=== PATIENT | male | born 1990 | race Caucasian/White ===

== ENCOUNTER 2017-05-03 14:50 | Emergency (ER) | payer MEDICAID ==
[~2017-05-03] VITALS: Ht 177.8 cm; Wt 85.0 kg
[2017-05-03 14:53] VITALS: Ht 177.8 cm; Wt 85.0 kg
[2017-05-03] MEDS ORDERED: LIDOCAINE 2% (MDV) 20 ML INJ INJ STA (15:11)
--- NOTE | 2017-05-03 15:16 | ERD ---
ER Documentation Chief Complaint Date/Time DATE: 05/03/17 TIME: 15:13 Chief Complaint left big toe ingrown toe nail HPI 26-year-old male comes emergency department with left big toe ingrown toenail for the past several months. 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 Pain is at the base of the nailbed on the left great toe, achy, worse with weightbearing, moderate to severe. He states that the pain did improve after soaking in warm water loss and after work. Also reports he has a hammertoe on the left second toe. He denies trauma or fevers or chills. Patient denies history of diabetes. ROS All systems reviewed and are negative except as per history of present illness. Medications Home Meds Active Scripts Tramadol HCl (Tramadol HCl) 50 Mg Tablet, 50 MG PO Q4 Y for PAIN, #15 TAB Prov:YARY COOPER PA-C 05/03/17 Bacitracin* (Bacitracin Zinc Oint*) 28.35 Gm Oint, 1 APPLIC TOP BID, #1 TUB APPLI TO Prov:YARY COOPER PA-C 05/03/17 Cephalexin* (Keflex*) 500 Mg Capsule, 500 MG PO QID for 7 Days, CAP Prov:YARY COOPER PA-C 05/03/17 PMhx/Soc Medical and Surgical Hx: pt denies Medical Hx, pt denies Surgical Hx Physical Exam Vitals Vital Signs Date Time Temp Pulse Resp B/P Pulse Ox O2 Delivery O2 Flow Rate FiO2 05/03/17 14:53 98.1 65 18 141/65 99 Physical Exam General: Well-developed, well-nourished. The patient appears in no acute distress. HEENT: Head is normocephalic, atraumatic. No scleral icterus. Neck: Supple. Nontender. Lungs: Clear to auscultation. Normal air movement. Heart: Regular rate and rhythm. S1 and S2 are normal. No murmurs, gallops, or rubs. Abdomen: Nondistended. Extremities: No clubbing or cyanosis. Moving extremities x 4. No weakness. Neurologic: Alert and oriented 3. No focal deficits. Normal speech and gait. Skin: Possible fungal infection of the left great toe, there is diffuse swelling and erythema and tenderness palpation. Hammertoe on the left second toe. Results 24 hrs Current Medications Medications (Trade) Dose Ordered Sig/[place] Route PRN Reason Start Time Stop Time Status Last Admin Dose Admin Lidocaine (Xylocaine 2% (Mdv) 20 ml) 20 ml ONCE STAT INJ 05/03/17 15:11 05/03/17 15:14 DC Procedures/MDM Procedure: Ingrown Toenail removal: patient was verbally consented. Patient's left great toe was prepped with Betadine. Digital block was done with lidocaine 1% without epinephrine, approximately 7 cc. Patient had good local anesthetic effect achieved. Foreceps were used to lift the nailbed, hemostat was used to remove the entire toenail. It was minor bleeding, hemostasis was achieved. Patient was neurovascularly intact postprocedure. Clean dressing was applied, patient was placed in a postop shoe. MDM: 26 yo male male comes in with onychomycosis of the left great toenail with ingrown. Patient's entire nail was removed, patient tolerated the procedure well and had minimal bleeding. He was placed in a postop shoe clean dressing followed. 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 He was given a list of outpatient facilities as well as podiatry information. Departure Diagnosis: Primary Impression: Ingrown left big toenail Additional Impression: Hammer toe Condition: Good YARY COOPER PA-C May 03, 2017 15:16
[2017-05-03] MEDS ORDERED: CEPH-443 PO (15:49)
[2017-05-03] MEDS ORDERED: TRAM50TA2 PO (15:49)
[2017-05-03] MEDS ORDERED: BACI28.34 TOP (15:49)
[2017-05-03] MEDS ORDERED: IBUPROFEN 600 MG TAB PO ONE (16:30)
[2017-05-03] MEDS ORDERED: HYDROCODONE/APAP (5/325) TAB PO ONE (16:30)
== END 2017-05-03 16:10 | disposition home or self-care (01) ==
LOC: FTE 14:50
DX: L60.0 Ingrowing nail (principal); M20.42 Other hammer toe(s) (acquired), left foot
CPT/HCPCS: 11750; Z7610

== ENCOUNTER 2017-05-06 16:21 | Emergency (ER) | payer MEDICAID ==
[~2017-05-06] VITALS: Ht 185.4 cm; Wt 105.5 kg
[~2017-05-06 16:21] MED LIST: BACI28.34 TOP; CEPH-443 PO; TRAM50TA2 PO
[2017-05-06 16:24] VITALS: Ht 185.4 cm; Wt 105.5 kg
[2017-05-06] MEDS ORDERED: HYDR28CR43 TOP (16:33)
[2017-05-06] MEDS ORDERED: CEPH-443 PO (16:33)
[2017-05-06] MEDS ORDERED: IBUP-1542 PO (16:33)
--- NOTE | 2017-05-06 16:44 | ERD ---
ER Documentation Chief Complaint Date/Time DATE: 05/06/17 TIME: 16:40 Chief Complaint Patient here for a recheck HPI This is a 26-year-old male the ER for recheck of his ingrown toenail removal. Patient states that since toenail removed with ease been feeling well pain has improved and he has not noticed any redness, swelling or discharge from his toe. Patient return to the ER because he was unable to fill prescriptions secondary to insurance not covering them, and became worried that if he didn't drink medication he would develop infection. ROS 12 point review of systems was done, all negative except per HPI. Medications Home Meds Active Scripts Ibuprofen* (Motrin*) 600 Mg Tab, 600 MG PO Q6, #30 TAB Prov:ANJALI ISABEL 05/06/17 Hydrocortisone (Neosporin) 1% - 28 Gm Cream..g., 1 APPLIC TOP BID for 3 Days, # 1 TUB Prov:ANJALI ISABEL 05/06/17 Cephalexin* (Keflex*) 500 Mg Capsule, 500 MG PO QID for 7 Days, CAP Prov:ANJALI ISABEL 05/06/17 Tramadol HCl (Tramadol HCl) 50 Mg Tablet, 50 MG PO Q4 Y for PAIN, #15 TAB Prov:YARY COOPER PA-C 05/03/17 Bacitracin* (Bacitracin Zinc Oint*) 28.35 Gm Oint, 1 APPLIC TOP BID, #1 TUB APPLI TO Prov:YARY COOPER PA-C 05/03/17 Cephalexin* (Keflex*) 500 Mg Capsule, 500 MG PO QID for 7 Days, CAP Prov:YARY COOPER PA-C 05/03/17 Allergies Allergies: Coded Allergies: No Known Allergy (Unverified , 05/06/17) Physical Exam Vitals Vital Signs Date Time Temp Pulse Resp B/P Pulse Ox O2 Delivery O2 Flow Rate FiO2 05/06/17 16:24 98.2 91 20 136/65 94 Physical Exam Const: [] Head: Atraumatic Neck: Full range of motion..~ No meningismus. Resp: Clear to auscultation bilaterally Cardio: Regular rate and rhythm, no murmurs Ext: Left great toe does not have nail secondary to toenail removal. No areas of erythema, discharge, warmth. Neur: Awake and alert Psych: Normal Mood and Affect Procedures/MDM This is a 26-year-old male presents to the ER for recheck. At this time patient' s toe is healing appropriately with no signs of infection. I did look up patient 's medication on [employer] and found that Cephalexin was sold at [email or web address] for only 10 dollars. Patient stated that he could afford this. I reprinted script for patient. Because nailbed appeared well I gave patient neosporin instead of bacitracin as bacitracin was very expensive and patient could not afford it. Patient was given a prescription for ibuprofen instead of Tramadol as pain has not been to severe. Patient needs to follow-up with his primary care doctor within 1-2 days or return to ER sooner symptoms worsen. My medical decision making was shared with the patient understands and agrees with plan. Departure Diagnosis: Primary Impression: Encounter for wound re-check Condition: Stable Patient Instructions: Wound Care Additional Instructions: Call your primary care doctor TOMORROW for an appointment during the next 1-2 days.See the doctor sooner or return here if your condition worsens before your appointment time. ANJALI ISABEL May 06, 2017 16:44
== END 2017-05-06 16:35 | disposition home or self-care (01) ==
LOC: E/R 16:21
DX: Z48.01 Encounter for change or removal of surgical wound dressing (principal)
CPT/HCPCS: 99283